=== PATIENT | male | born 1980 | race Caucasian/White ===

== ENCOUNTER 2016-07-28 05:46 | Day surgery (SDC) | payer MEDICARE ==
[~2016-07-28] VITALS: Ht 182.9 cm; Wt 142.0 kg
--- NOTE | ~2016-07-28 | OP ---
PATIENT NAME: YOVANA SARAVIA MEDICAL RECORD: [id number] :84 LOCATION:D.OPS ADMISSION DATE: SURGEON: CHITO URENA MD DATE OF OPERATION: 07/28/2016 PREOPERATIVE DIAGNOSES: 1. Pilonidal cyst. 2. Tobacco dependent syndrome. 3. Chronic pain. POSTOPERATIVE DIAGNOSES: 1. Pilonidal cyst. 2. Tobacco dependent syndrome. 3. Chronic pain. PROCEDURE: Pilonidal cystectomy. SURGEON: Chito Urena MD REPORT OF PROCEDURE: The patient was placed in the jackknife prone position and the gluteal region was prepped and draped in sterile fashion and the gluteal crease at the tip of the coccyx, there were noted to be 3 small pits. I probed these pits and I did not extend very far down, I then just connected all these openings using electrocautery and dissected down around the inflamed tissue. Once we removed this core of tissue out to normal fatty tissue, then the specimen was sent off for permanent. The total length of the wound was 3 cm. The depth was about 2 cm. We irrigated out the wound with normal saline and any bleeding that was found was treated with electrocautery. I saw no further evidence of any fistulous tracts. The wound was then packed with saline-soaked gauze. COMPLICATIONS: None. CONDITION: Stable. ANESTHESIA: General endotracheal and local. BLOOD LOSS: Minimal. TRANSINT:[id number] Voice Confirmation ID: [id number] DOCUMENT ID: [id number] CHITO URENA MD CC: ANJANA LONGO MD [id number] DICTATION DATE: 07/28/16 1057 PEDIATRIC PHYSICAL THERAPY ASSISTANT: 07/28/16 1154 REG [facility] [address] [id number]
[~2016-07-28 05:46] MED LIST: BACLOFEN10 MG PO; COUMADIN5 MG PO; DILAUDID8 MG PO; DOLOPHINE HCL10 MG PO; EFFEXOR XR75 MG PO; MOTRIN800 MG PO; NEURONTIN 300300 MG PO; NORCO 10/325 TA1 TA1 PO; PERCOCET 10/3251 TA1 PO; PRILOSEC20 MG PO; PRINIVIL10 MG PO; ROXICODONE15 MG PO; VITAMIN B-121000 MC3 PO; XANAX1 MG PO; ZESTORETIC 20/21 TAB PO
[2016-07-28 07:36] LABS: BASOPHILS 0.7 % (0-2); EOSINOPHILS 4.1 % (0-7); HEMATOCRIT 48.6 % (42.0-54.0); HEMOGLOBIN 16.1 g/dL (13.5-17.5); IMMATURE GRANULOCYTES 0.3 % (0-5); MCH 31.1 pg (26.0-34.0); MCHC 33.1 g/dL (31.0-37.0); MCV 93.8 fL (80.0-100.0); MEAN PLATELET VOLUME 10.9 fL (7.4-10.4); MONOCYTES 6.8 % (2-11); NEUTROPHILS 59.1 % (40-80); PLATELET COUNT 213 10x3/uL (130-400); RBC 5.18 10x6/uL (4.20-6.10); RDW 13.2 % (11.5-14.5); WBC 12.3 10x3/uL (4.8-10.8)
[2016-07-28 07:52] LABS: CALC OSMOLALITY 276 mosm/kg (275-300); CALCIUM 8.8 mg/dL (8.5-10.1); CARBON DIOXIDE 27.4 mmol/L (21.0-32.0); CHLORIDE - SERUM 102 mmol/L (98-107); GLUCOSE 109 mg/dL (74-106); POTASSIUM - SERUM 3.9 mmol/L (3.5-5.1); SODIUM 138 mmol/L (136-145); UREA NITROGEN 12 mg/dL (7-18); eGFR NON AFRICAN AMERICAN > 90 mL/min (90-120)
[2016-07-28] MEDS ORDERED: LYRICA150 MG PO (08:17)
[2016-07-28] MEDS ORDERED: LEVORPHANOL TART2 MG PO (08:17)
[2016-07-28] MEDS ORDERED: KLONOPIN1 MG PO (08:18)
[2016-07-28] MEDS ORDERED: NAPROSYN500 MG PO (08:19)
[2016-07-28] MEDS ORDERED: EFFEXOR XR150 MG PO (08:20)
[2016-07-28] MEDS ORDERED: TESTERONE IM (08:23)
[2016-07-28 08:30] VITALS: BP 122/66; Ht 182.9 cm; Wt 142.0 kg
[2016-07-28] MEDS ORDERED: HYDROCODONE-APA1 TAB PO (10:52)
--- NOTE | 2016-07-28 15:41 | NUR ---
1245 IV DC WITH CATHER TIP INTACT 1250 CALLING [facility] FOR DRESSING CHANGE, PATEINT NOW WANT TO DO IT AT HOME, DR URENA CALL OKAY FOR TO DO DRESSING CHANGE 1315 TEACHING DONE WITH ON DRESSING CHANGE, SUPPIES GIVEN
== END 2016-07-28 13:20 | disposition home or self-care (01) ==
LOC: D.OPS 05:46
PROVIDERS: Surgery
DX: L05.91 Pilonidal cyst without abscess (principal); F17.200 Nicotine dependence, unspecified, uncomplicated; G89.29 Other chronic pain

== ENCOUNTER 2019-12-06 08:51 | Day surgery (SDC) | payer OTHER ==
[~2019-12-06] VITALS: Ht 182.9 cm; Wt 138.8 kg
[~2019-12-06 08:51] MED LIST changes: +ATARAX 25 MG TA25 MG PO; +CLINDAMYCIN HC300 MG PO; +EFFEXOR XR150 MG PO; +HYDROCODONE-APA1 TAB PO; +KLONOPIN1 MG PO; +LEVORPHANOL TART2 MG PO; +LYRICA150 MG PO; +MULTI-DAY VITAM1 TAB PO; +NAPROSYN500 MG PO; +TESTERONE IM; +VITAMIN D PO
[2019-12-06 09:37] LABS: BASOPHILS 0.9 % (0-2); HEMATOCRIT 44.6 % (42.0-54.0); HEMOGLOBIN 14.7 g/dL (13.5-17.5); IMMATURE GRANULOCYTES 0.7 % (0-5); LYMPHOCYTES 22.1 % (15-50); MCV 94.1 fL (80.0-100.0); MONOCYTES 7.8 % (2-11); NEUTROPHILS 65.5 % (40-80); PLATELET COUNT 247 10x3/uL (130-400); RBC 4.74 10x6/uL (4.20-6.10); RDW 12.6 % (11.5-14.5); WBC 11.2 10x3/uL (4.8-10.8)
[2019-12-06 09:54] LABS: ANION GAP 7.9 mmol/L (8-16); CARBON DIOXIDE 31.6 mmol/L (21.0-32.0); CREATININE - SERUM 1.2 mg/dL (0.6-1.3); POTASSIUM - SERUM 4.5 mmol/L (3.5-5.1)
[2019-12-06 10:51] VITALS: BP 128/70; Ht 182.9 cm; Wt 138.8 kg
--- NOTE | 2019-12-06 11:14 | NUR ---
SPOKE WITH PT REGARDING ELEVATED BLOOD GLUCOSE (222), EDUCATED PT ON NEED TO FOLLOW UP WITH PCP FOR GLUCOSE CONTROL. SPOKE WITH DR JENKINS REGARDING PT BS AT THIS TIME.
[2019-12-06] MEDS ORDERED: HYDROCODON-ACE1 EA10 PO (13:54)
--- NOTE | 2019-12-06 15:50 | NUR ---
IV D/C'D WITH CANNULA INTACT, PRESSURE HELD, AND DRSG PLACED. DISCHARGE INSTRUCTIONS GIVEN AND PT AND VERBALIZED AN UNDERSTANDING.DISCHARGED IN STABLE CONDITION AND WITHOUT C/O
--- NOTE | 2019-12-10 09:49 | OP ---
PATIENT NAME: YOVANA SARAVIA MEDICAL RECORD: [id number] :84 LOCATION:D.OPS ADMISSION DATE: SURGEON: CHITO URENA MD DATE OF OPERATION: 12/06/2019 PREOPERATIVE DIAGNOSES: 1. Left thigh and left scrotal abscess. 2. Morbid obesity. 3. Hypertension. 4. Tobacco dependence syndrome. POSTOPERATIVE DIAGNOSES: 1. Left thigh and left scrotal abscess. 2. Morbid obesity. 3. Hypertension. 4. Tobacco dependence syndrome. 5. Left scrotal sebaceous cyst approximately 2 cm. SURGEON: Chito Urena MD REPORT OF PROCEDURE: The patient's scrotum and left upper thigh were all prepped and draped in sterile fashion. As I pushed around on the scrotal inflammation, there was spillage of some white cottage cheesy material out of a small pour, making this consistent with a sebaceous cyst. As I probed around on the left side, I was not able to extract any fluid. I went ahead and opened up this left thigh inflammation and just found some what appeared to be chronically inflamed subcutaneous tissues. The tissue was not very deep. I went ahead and just excised some of this inflamed tissue and left the wound open. I irrigated this out with peroxide and saline solution, then packed it with gauze. The scrotal sebaceous cyst was then excised making an ovoid incision through the scrotal tissue and using electrocautery to excise the cystic pocket out from the subcutaneous space. Once this was completely excised, it was measured out at about 2 cm. The scrotal incision was then irrigated with peroxide and saline solution and then reapproximated with running 5-0 Monocryl. COMPLICATIONS: None. CONDITION: Stable. ANESTHESIA: General endotracheal. BLOOD LOSS: 30 mL. TRANSINT:[id number] Voice Confirmation ID: [id number] DOCUMENT ID: [id number] CHITO URENA MD at 0949 CC: ANJANA LONGO MD [id number] DICTATION DATE: 12/06/19 1358 CHIEF MEDICAL DIRECTOR: 12/07/19 0150 [facility] 12/06/[id number] [place] [address]
== END 2019-12-06 15:45 | disposition home or self-care (01) ==
LOC: D.OPS 08:51
PROVIDERS: ATTEND Surgery
DX: N49.2 Inflammatory disorders of scrotum (principal); E66.01 Morbid (severe) obesity due to excess calories; I10 Essential (primary) hypertension; F17.200 Nicotine dependence, unspecified, uncomplicated; L72.3 Sebaceous cyst; L02.416 Cutaneous abscess of left lower limb